=== PATIENT | female | born 1990 | race Caucasian/White ===

== ENCOUNTER 2019-06-06 18:17 | Emergency (ER) | payer BC, OTHER ==
[2019-06-06 18:32] VITALS: BP 114/73
--- NOTE | 2019-06-06 19:02 | UC ---
UC General HPI - HPI Summary HPI Summary: 29-year-old woman comes in with a chief complaint of bilateral flank pain. Pain started about a week ago. Is been gradually increasing over time. She reports about 4 out of 10 right now. She does have rheumatoid arthritis and is on plaquenil. No dysuria no urinary frequency or urgency. No change in eating or bowels. No fevers or chills. - History of Current Complaint Chief Complaint: UCBackPain Stated Complaint: ABDOMINAL PAIN Time Seen by Provider: 06/06/19 18:41 Hx Last Menstrual Period: 3 WEEKS Pain Intensity: 4 - Allergy/Home Medications Allergies/Adverse Reactions: Allergies Allergy/AdvReac Type Severity Reaction Status Date / Time gluten Allergy Severe ABD Verified 06/06/19 18:33 Home Medications: Home Medications Hydroxychloroquine TAB* [Plaquenil TAB*] 1 tab PO DAILY 06/06/19 [History Confirmed 06/06/19] PMH/Surg Hx/FS Hx/Imm Hx Previously Healthy: Yes - rheumatoid arthritis - Surgical History Surgical History: Yes Surgery Procedure, Year, and Place: TONSILS. NOSE FRAX - Family History Known Family History: Positive: Non-Contributory - Social History Alcohol Use: None Substance Use Type: None Smoking Status (MU): Never Smoked Tobacco Review of Systems All Other Systems Reviewed And Are Negative: Yes Constitutional: Positive: Negative Skin: Positive: Negative Eyes: Positive: Negative ENT: Positive: Negative Respiratory: Positive: Negative Cardiovascular: Positive: Negative Gastrointestinal: Positive: Other - SEE HPI Genitourinary: Positive: Other - SEE HPI Motor: Positive: Negative Neurovascular: Positive: Negative Musculoskeletal: Positive: Negative Neurological: Positive: Negative Psychological: Positive: Negative Is Patient Immunocompromised?: Yes - ON plaquenil Physical Exam Triage Information Reviewed: Yes Appearance: Well-Appearing, No Pain Distress, Well-Nourished Vital Signs: Initial Vital Signs Temp 98.7 F 06/06/19 18:26 Pulse 80 06/06/19 18:26 Resp 16 06/06/19 18:26 BP 114/73 06/06/19 18:26 Pulse Ox 100 06/06/19 18:26 Vital Signs Reviewed: Yes Eye Exam: Normal Eyes: Positive: Conjunctiva Clear Neck: Positive: Supple Respiratory: Positive: Lungs clear, Normal breath sounds, No respiratory distress Cardiovascular: Positive: RRR Abdomen Description: Positive: CVA Tenderness (R), CVA Tenderness (L), Other: - Mild suprapubic tenderness to palpation Bowel Sounds: Positive: Present Musculoskeletal: Positive: Strength Intact, ROM Intact, No Edema Neurological: Positive: Alert Psychological: Positive: Age Appropriate Behavior Skin Exam: Normal Course/Dx - Course Course Of Treatment: Kitchen And Bath Designer: (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 Examination was focused on the kidneys. COMPARISON: No relevant prior studies available. FINDINGS: Right kidney: The right kidney measures 12.2 cm in length. Normal echogenicity. Mild pelviectasis without definite hydronephrosis. No nephrolithiasis. Left kidney: The left kidney measures 12.5 cm in length. Normal echogenicity. Mild pelviectasis without definite hydronephrosis. No nephrolithiasis. Bladder: Unremarkable. Bilateral ureteral jets are present. IMPRESSION: Mild bilateral pelviectasis without definite hydronephrosis. Consider further evaluation with CT, if clinically indicated. To contact [employer] with a general question: [facility] - [phone] For direct physician to physician contact: Physician Hotline - [phone] [facility] ([facility] Facility ID #[id number]) End of Report Content The findings of the ultrasound came back after the patient had left. Overall CBC CMP lipase are pending. Urine culture is pending. Started the patient on Keflex for the possibility of pyelonephritis although that is unlikely. I discussed the ultrasound results with the urologist on-call Dr. Marina.'s office is planning on contacting the patient so that she can follow-up with urology. When I attempted to call the patient there was no answer on her cell phone and her voice mailbox was full so therefore there is no contact made this evening June 06, 2019. I did place a progress note asking nursing to contact the patient tomorrow June 07, 2019 to inform the patient of plan follow-up with urology. - Diagnoses Provider Diagnosis: Bilateral flank pain Discharge ED - Sign-Out/Discharge Documenting (check all that apply): Patient Departure All imaging exams completed and their final reports reviewed: Yes - Discharge Plan Condition: Stable Disposition: HOME Prescriptions: Cephalexin CAP* [Keflex CAP*] 500 mg PO TID #30 cap Patient Education Materials: Flank Pain (ED) Referrals: [facility] [facility] [Outside] [facility] [Outside] Additional Instructions: FOLLOW UP WITH YOUR DOCTOR. GO TO THE EMERGENCY DEPARTMENT IF YOUR CONDITION DOES NOT IMPROVE OR WORSENS; PAIN, FEVER, YOU FEEL ILL OR ANY QUESTIONS OR CONCERNS. - Billing Disposition and Condition Condition: STABLE Disposition: Home
--- NOTE | 2019-06-06 21:23 | UC ---
- Progress Note Progress Note: The renal ultrasound reports came back with mild bilateral pelviectasis without definite hydronephrosis. I discussed this with Dr. Marina urology. He did not suggest any new treatment other than to follow-up with his office. At this time the plan is for urology to call the patient tomorrow to arrange follow-up to follow her bilateral flank pain. When I attempted to call the patient's number was no answer and the mailbox is full. Nursing to contact patient to let her know of the renal ultrasound results and the plan to have her follow up with urology. Course/Dx - Diagnoses Provider Diagnoses: Bilateral flank pain Discharge ED - Sign-Out/Discharge Documenting (check all that apply): Patient Departure All imaging exams completed and their final reports reviewed: Yes - Discharge Plan Condition: Stable Disposition: HOME Prescriptions: Cephalexin CAP* [Keflex CAP*] 500 mg PO TID #30 cap Patient Education Materials: Flank Pain (ED) Referrals: [facility] [Outside] [facility] [Outside] Additional Instructions: FOLLOW UP WITH YOUR DOCTOR. GO TO THE EMERGENCY DEPARTMENT IF YOUR CONDITION DOES NOT IMPROVE OR WORSENS; PAIN, FEVER, YOU FEEL ILL OR ANY QUESTIONS OR CONCERNS. - Billing Disposition and Condition Condition: STABLE Disposition: Home
[2019-06-07 12:53] LABS: ALT 15 U/L (7-52); AST 24 U/L (13-39); Albumin 4.9 g/dL (3.2-5.2); Albumin/Globulin Ratio 2.6 (1-3); Alkaline Phosphatase 45 U/L (34-104); Anion Gap 4 mmol/L (2-11); BUN/Creatinine Ratio 7.4 (8-20); Blood Urea Nitrogen 5 mg/dL (6-24); CO2 Carbon Dioxide 30 mmol/L (22-32); Calcium 9.7 mg/dL (8.6-10.3); Chloride 105 mmol/L (101-111); EGFR African American 123.8 (>60); EGFR Non-African American 102.3 (>60); Globulin 1.9 g/dL (2-4); Glucose 80 mg/dL (70-100); Potassium 3.9 mmol/L (3.5-5.0); Sodium 139 mmol/L (135-145); Total Protein 6.8 g/dL (6.4-8.9)
[2019-06-07 14:05] LABS: ABS Eosinophils 0.1 10^3/ul (0-0.6); ABS Lymphocytes 2.7 10^3/ul (1.0-4.8); ABS Monocytes 0.6 10^3/ul (0-0.8); ABS Neutrophils 3.7 10^3/ul (1.5-7.7); Eosinophil % 0.8 %; Hematocrit 42 % (35-47); Hemoglobin 14.6 g/dL (12.0-16.0); Lymphocyte % 37.8 %; Mean Corpuscular HGB Conc 34 g/dL (31-36); Mean Corpuscular Hemoglobin 31 pg (27-31); Mean Corpuscular Volume 91 fL (80-97); Nucleated Red Blood Cells % 0.2; Platelet Count Platelets clumped. 10^3/uL (150-450); Red Blood Count 4.63 10^6 /uL (3.70-4.87); Red Cell Distribution Width 13 % (10-15); White Blood Count 7.1 10^3/uL (3.5-10.8)
== END 2019-06-06 20:05 | disposition home or self-care (01) ==
LOC: UCEAST 18:17
DX: R10.9 Unspecified abdominal pain (principal); M06.9 Rheumatoid arthritis, unspecified
CPT/HCPCS: 36415; 76775; 80053; 81003; 83690; 84702; 85025; 87086; 99202; G0463